=== PATIENT | female | born 1960 | race African-American/Black ===

== ENCOUNTER 2017-09-06 20:49 | Emergency (ER) | payer MEDICARE, MEDICAID ==
[~2017-09-06] VITALS: Ht 167.6 cm; Wt 70.0 kg
[~2017-09-06 20:49] MED LIST: AMLO1TAB64 PO; CARI350T PO; CLON0.3T PO; HYDR-4135 PO; HYDR-523 PO; LABE100T PO; ROSU10TA PO
[2017-09-06 21:41] LABS: BASOPHILS % 0.4 % (0.0-2.0); EOSINOPHILS % 1.5 % (0.0-5.0); HEMATOCRIT. 29.2 % (36.0-48.0); HEMOGLOBIN. 9.8 g/dL (12.0-16.0); LYMPHOCYTES % 15.2 % (20.0-50.0); MEAN CORPUSCULAR HEMOGLOBIN 23.4 pg (28.0-32.0); MEAN CORPUSCULAR VOLUME 69.9 fL (81.0-99.0); MEAN PLATELET VOLUME 10.2 fl (7.4-10.4); MONOCYTES % 8.6 % (2.0-8.0); NEUTROPHILS % 74.3 % (40.0-76.0); PLATELET 201 x1000/uL (130-400); RED BLOOD CELL COUNT 4.18 mill/uL (4.2-5.4); RED CELL DISTRIBUTION WIDTH 16.7 % (11.6-14.6)
[2017-09-06 21:46] LABS: PARTIAL THROMBOPLASTIN TIME 23.7 sec (23.4-31.0); PROTHROMBIN TIME 10.6 sec (9.4-11.6)
[2017-09-06] MEDS ORDERED: ALBUTEROL (0.083%) 2.5MG/3ML NEB HHN STA (21:50)
[2017-09-06] MEDS ORDERED: PREDNISONE 20MG TABLET PO STA (21:50)
[2017-09-06] MEDS ORDERED: IPRATROPIUM BROMIDE (0.02%) 0.5MG/2.5ML NEB HHN STA (21:50)
[2017-09-06 21:55] LABS: TROPONIN I 0.07 ng/mL (0.00-0.04)
[2017-09-06 22:05] LABS: PLATELET ESTIMATE NORMAL
[2017-09-06] MEDS ORDERED: IPRATROPIUM/ALBUTEROL 0.5-3(2.5)MG/3ML NEB ONE (22:07)
[2017-09-06] MEDS ORDERED: ALBUTEROL (0.5%) 2.5MG/0.5ML NEB HHN ONE (22:08)
[2017-09-07] MEDS ORDERED: TRAMADOL 50MG TABLET PO ONE
[2017-09-07] MEDS ORDERED: DIPHENHYDRAMINE 25MG CAPSULE PO ONE
[2017-09-07 01:51] VITALS: BP 126/59
== END 2017-09-07 01:56 | disposition home or self-care (01) ==
LOC: ER 20:57
DX: J20.9 Acute bronchitis, unspecified (principal); I10 Essential (primary) hypertension; N28.9 Disorder of kidney and ureter, unspecified; D64.9 Anemia, unspecified; E11.9 Type 2 diabetes mellitus without complications; Z98.890 Other specified postprocedural states; Z88.6 Allergy status to analgesic agent; Z91.048 Other nonmedicinal substance allergy status
CPT/HCPCS: 36415; 71010; 80048; 83880; 84484; 85025; 85610; 85730; 93005; 94640; 99285; J7512; J7611; J7620; Q0163

== ENCOUNTER 2018-10-07 18:33 | Inpatient (IN) | payer MEDICARE, MEDICAID ==
[~2018-10-07] VITALS: Ht 165.1 cm; Wt 63.5 kg
[~2018-10-07 18:33] MED LIST changes: -CARI350T PO; -LABE100T PO; +LABE100T5 PO; +S350 PO
[2018-10-07] MEDS ORDERED: SODIUM CHLORIDE 0.9% 1000ML BAG (SEPSIS BOLUS) IV ONE ×2 (20:15)
[2018-10-07] MEDS ORDERED: VANCOMYCIN 1 G PREMIX 200 ML IV SCH (20:15)
[2018-10-07] MEDS ORDERED: PIPERACILLIN/TAZOBACTAM 3.375GM/50ML PREMIX IV SCH (20:15)
[2018-10-07] MEDS ORDERED: MORPHINE SULFATE 4 MG/ML CPJ (NOT FOR IM USE) IV ONE (20:30)
[2018-10-07] MEDS ORDERED: DIPHENHYDRAMINE 50MG/ML VIAL IV ONE (20:30)
[2018-10-07 22:08] LABS: BASOPHILS % 0.6 % (0.0-2.0); EOSINOPHILS % 1.4 % (0.0-5.0); HEMATOCRIT. 28.9 % (36.0-48.0); HEMOGLOBIN. 9.5 g/dL (12.0-16.0); LYMPHOCYTES % 18.7 % (20.0-50.0); MEAN CORPUSCULAR HEMOGLOBIN 22.8 pg (28.0-32.0); MEAN CORPUSCULAR VOLUME 69.5 fL (81.0-99.0); MEAN PLATELET VOLUME 10.9 fl (7.4-10.4); MONOCYTES % 7.6 % (2.0-8.0); NEUTROPHILS % 71.7 % (40.0-76.0); PLATELET 197 x1000/uL (130-400); RED BLOOD CELL COUNT 4.16 mill/uL (4.2-5.4); RED CELL DISTRIBUTION WIDTH 16.9 % (11.6-14.6)
[2018-10-07 22:10] LABS: CLARITY URINE CLEAR (CLEAR); COLOR URINE YELLOW (YELLOW); KETONES URINE NEGATIVE (NEGATIVE); LEUKOCYTE ESTERASE URINE 1+ (NEGATIVE); NITRITE URINE NEGATIVE (NEGATIVE); OCCULT BLOOD URINE NEGATIVE (NEGATIVE); PH URINE 6.5 (4.5-8.0); PROTEIN URINE 1+ (NEGATIVE); SPECIFIC GRAVITY URINE 1.013 (1.005-1.030); UROBILINOGEN URINE 0.2 E.U./dL (0.2-1.0)
[2018-10-07 22:11] LABS: INR 1.1; PROTHROMBIN TIME 10.7 sec (9.1-11.1)
[2018-10-07 22:12] LABS: CHLORIDE 108 mEq/L (98-107)
[2018-10-07 22:44] LABS: PLATELET ESTIMATE NORMAL
[2018-10-07] MEDS ORDERED: METOCLOPRAMIDE HCL 10MG/2ML VIAL IV ONE (23:45)
[2018-10-08] MEDS: CLONIDINE 0.3MG TABLET PO SCH ×3 (06:57→21:34)
[2018-10-08] MEDS ORDERED: ACETAMINOPHEN 325MG TABLET PO PRN (07:00)
[2018-10-08] MEDS ORDERED: CLONIDINE 0.1MG TABLET PO PRN (07:00)
[2018-10-08] MEDS ORDERED: ONDANSETRON HCL 4MG/2ML INJ IV PRN (07:00)
[2018-10-08] MEDS ORDERED: HYDROCODONE/ACETAMINOPHEN 5/325MG TABLET PO PRN (07:00)
[2018-10-08] MEDS ORDERED: DOCUSATE SODIUM 100MG CAPSULE PO PRN (07:00)
[2018-10-08] MEDS: DIPHENHYDRAMINE 50MG/ML VIAL IV PRN ×2 (09:35→21:41)
[2018-10-08] MEDS ORDERED: OXYC-611 MT (10:57)
[2018-10-08] MEDS: ENOXAPARIN 40MG/0.4ML SYR SUBCUT SCH (11:50)
[2018-10-08] MEDS: CEFTRIAXONE 1 G PREMIX 50 ML IV SCH (11:50)
[2018-10-08 12:00] VITALS: BP 150/88
[2018-10-08] MEDS ORDERED: INFLUENZA VIRUS VACCINE(AFLURIA) 0.5ML SYR IM ONE (12:00)
[2018-10-08 12:12] VITALS: BP 150/88
[2018-10-08] MEDS ORDERED: FURO-152 MT (12:44)
[2018-10-08] MEDS ORDERED: OXYCODONE HCL 20MG TABLET SR 12HR PO PRN (13:00)
[2018-10-08] MEDS ORDERED: OXYCODONE HCL 10MG TABLET SR 12HR PO PRN (13:30)
[2018-10-08] MEDS: AMLODIPINE 10MG TABLET PO SCH (15:16)
[2018-10-08] MEDS: VANCOMYCIN 1 G PREMIX 200 ML IV SCH (15:16)
[2018-10-08 16:00] VITALS: BP 164/85
[2018-10-08 17:00] VITALS: BP 124/73
[2018-10-08] MEDS: MORPHINE SULFATE 4 MG/ML CPJ (NOT FOR IM USE) IV PRN ×2 (18:45→22:34)
[2018-10-08 20:00] VITALS: BP 99/60
[2018-10-08] MEDS: HYDRALAZINE HCL 50MG TABLET PO SCH (21:33)
[2018-10-09] VITALS: BP 120/55
[2018-10-09 04:00] VITALS: BP 164/82
[2018-10-09] MEDS: MORPHINE SULFATE 4 MG/ML CPJ (NOT FOR IM USE) IV PRN ×4 (04:04→19:51)
[2018-10-09] MEDS: DIPHENHYDRAMINE 50MG/ML VIAL IV PRN ×4 (04:04→19:40)
[2018-10-09] MEDS: HYDRALAZINE HCL 50MG TABLET PO SCH ×3 (05:21→21:07)
[2018-10-09] MEDS: CLONIDINE 0.3MG TABLET PO SCH ×3 (05:21→21:07)
[2018-10-09 07:38] LABS: BASOPHILS % 0.7 % (0.0-2.0); EOSINOPHILS % 3.9 % (0.0-5.0); HEMATOCRIT. 26.5 % (36.0-48.0); HEMOGLOBIN. 8.6 g/dL (12.0-16.0); LYMPHOCYTES % 34.5 % (20.0-50.0); MEAN CORPUSCULAR HEMOGLOBIN 22.9 pg (28.0-32.0); MEAN CORPUSCULAR VOLUME 70.8 fL (81.0-99.0); MONOCYTES % 9.4 % (2.0-8.0); NEUTROPHILS % 51.5 % (40.0-76.0); RED BLOOD CELL COUNT 3.75 mill/uL (4.2-5.4); RED CELL DISTRIBUTION WIDTH 16.9 % (11.6-14.6)
[2018-10-09 08:00] VITALS: BP 147/79
[2018-10-09 08:28] LABS: CHLORIDE 105 mEq/L (98-107)
[2018-10-09] MEDS: VANCOMYCIN 1 G PREMIX 200 ML IV SCH (09:10)
[2018-10-09] MEDS: ENOXAPARIN 40MG/0.4ML SYR SUBCUT SCH (09:11)
[2018-10-09] MEDS: AMLODIPINE 10MG TABLET PO SCH (09:11)
[2018-10-09 12:00] VITALS: BP 163/67
[2018-10-09] MEDS: CEFTRIAXONE 1 G PREMIX 50 ML IV SCH (12:00)
[2018-10-09 16:00] VITALS: BP 129/75
[2018-10-09] MEDS: VANCOMYCIN 750 MG PREMIX 150 ML IV SCH (19:51)
[2018-10-09 20:00] VITALS: BP 157/84
[2018-10-10] VITALS (7 sets, daily range): BP systolic 125–158; BP diastolic 74–83
[2018-10-10] MEDS: CLONIDINE 0.3MG TABLET PO SCH ×3 (06:00→20:41)
[2018-10-10] MEDS: HYDRALAZINE HCL 50MG TABLET PO SCH ×3 (06:24→20:41)
[2018-10-10] MEDS: DIPHENHYDRAMINE 50MG/ML VIAL IV PRN ×4 (06:25→20:41)
[2018-10-10] MEDS: MORPHINE SULFATE 4 MG/ML CPJ (NOT FOR IM USE) IV PRN ×4 (06:32→20:41)
[2018-10-10] MEDS: VANCOMYCIN 750 MG PREMIX 150 ML IV SCH ×2 (08:36→20:40)
[2018-10-10] MEDS: ENOXAPARIN 40MG/0.4ML SYR SUBCUT SCH (08:37)
[2018-10-10] MEDS: AMLODIPINE 10MG TABLET PO SCH (08:37)
[2018-10-10] MEDS ORDERED: CEFTRIAXONE 1 G PREMIX 50 ML IV SCH (13:00)
[2018-10-11 00:05] VITALS: BP 129/68
[2018-10-11] MEDS: DIPHENHYDRAMINE 50MG/ML VIAL IV PRN ×2 (02:14→05:58)
[2018-10-11] MEDS: MORPHINE SULFATE 4 MG/ML CPJ (NOT FOR IM USE) IV PRN ×3 (02:14→10:46)
[2018-10-11 04:00] VITALS: BP 158/74
[2018-10-11] MEDS: HYDRALAZINE HCL 50MG TABLET PO SCH (05:58)
[2018-10-11] MEDS: CLONIDINE 0.3MG TABLET PO SCH (05:58)
[2018-10-11 08:00] VITALS: BP 161/78
[2018-10-11] MEDS: AMLODIPINE 10MG TABLET PO SCH (08:23)
[2018-10-11] MEDS: VANCOMYCIN 750 MG PREMIX 150 ML IV SCH (08:24)
[2018-10-11] MEDS: ENOXAPARIN 40MG/0.4ML SYR SUBCUT SCH (08:24)
[2018-10-11 10:53] VITALS: BP 141/72
== END 2018-10-11 11:50 | disposition home health service (06) | DRG 683 ==
LOC: ER 18:33 → EDBEDREQ 23:56 → EDBEDREQTM 23:56 → EDBEDREQ 23:57 → 7WST 10-08 00:26 → EDBEDREQ 10-08 00:40 → EDBEDREQTM 10-08 00:40 → EDBEDREQSVC 10-08 00:40 → EDBEDREQDT 10-08 00:40 → ENRESERV 10-08 08:09
PROVIDERS: ADMIT Internal Medicine Nephrology; ATTEND Internal Medicine Nephrology
DX: N17.9 Acute kidney failure, unspecified (principal); N39.0 Urinary tract infection, site not specified; S41.101A Unspecified open wound of right upper arm, initial encounter; I10 Essential (primary) hypertension; D64.9 Anemia, unspecified; Z88.5 Allergy status to narcotic agent; Z88.1 Allergy status to other antibiotic agents; Z91.041 Radiographic dye allergy status; Y93.89 Activity, other specified; Y92.89 Other specified places as the place of occurrence of the external cause; Y99.8 Other external cause status; L90.5 Scar conditions and fibrosis of skin; S41.101S Unspecified open wound of right upper arm, sequela; X08.8XXS Exposure to other specified smoke, fire and flames, sequela
CPT/HCPCS: 36415; 71045; 80048; 80202; 83605; 83735; 84145; 84484; 90686; 93005; 96365; 96368; 96375; 97162; 99285; C1893; J0696; J1200; J1650; J2270; J2543; J2765; J3370; J7030; J7050

== ENCOUNTER 2022-08-09 12:15 | Inpatient (IN) | payer MEDICARE, MEDICAID ==
[~2022-08-09] VITALS: Ht 170.2 cm; Wt 79.8 kg
[~2022-08-09 12:15] MED LIST changes: +FURO-152 MT; -HYDR-523 PO; -LABE100T5 PO; +OXYC-611 MT; -ROSU10TA PO; -S350 PO
[2022-08-09] MEDS ORDERED: ACETAMINOPHEN 325MG TABLET PO ONE (12:45)
[2022-08-09 15:11] LABS: BASOPHILS % 0.2 % (0.0-2.0); EOSINOPHILS % 1.3 % (0.0-5.0); HEMATOCRIT. 33.1 % (36.0-48.0); HEMOGLOBIN. 10.8 g/dL (12.0-16.0); LYMPHOCYTES % 15.9 % (20.0-50.0); MEAN CORPUSCULAR HEMOGLOBIN 22.9 pg (28.0-32.0); MEAN CORPUSCULAR VOLUME 69.9 fL (81.0-99.0); MEAN PLATELET VOLUME 10.2 fl (7.4-10.4); MONOCYTES % 6.5 % (2.0-8.0); NEUTROPHILS % 76.1 % (40.0-76.0); PLATELET 270 x1000/uL (130-400); RED BLOOD CELL COUNT 4.74 mill/uL (4.2-5.4); RED CELL DISTRIBUTION WIDTH 17.3 % (11.6-14.6)
[2022-08-09 15:23] LABS: CHLORIDE 101 mEq/L (98-107)
[2022-08-09 17:01] LABS: PLATELET ESTIMATE NORMAL
[2022-08-09] MEDS ORDERED: MORPHINE SULFATE 4 MG/ML CPJ (NOT FOR IM USE) IV ONE (19:00)
[2022-08-09] MEDS ORDERED: MORPHINE SULFATE 4 MG/ML CPJ (NOT FOR IM USE) IV NR (19:00)
[2022-08-09] MEDS ORDERED: DIPHENHYDRAMINE 50MG/ML VIAL IV NR (19:00)
[2022-08-09] MEDS ORDERED: DIPHENHYDRAMINE 50MG/ML VIAL IV ONE (19:00)
[2022-08-09] MEDS ORDERED: NITROGLYCERIN 0.4MG TABLET SL SL PRN (20:45)
[2022-08-09] MEDS ORDERED: ACETAMINOPHEN 325MG TABLET PO PRN ×4 (20:45→21:15)
[2022-08-09] MEDS ORDERED: GUAIFENESIN 200MG/10ML SUGAR FREE UDC PO PRN ×2 (20:45→21:15)
[2022-08-09] MEDS ORDERED: IPRATROPIUM/ALBUTEROL 0.5-3(2.5)MG/3ML NEB NEB PRN (20:45)
[2022-08-09] MEDS ORDERED: TRAMADOL 50MG TABLET PO PRN (20:45)
[2022-08-09] MEDS ORDERED: DOCUSATE SODIUM 100MG CAPSULE PO PRN ×2 (20:45→21:15)
[2022-08-09] MEDS ORDERED: CLONIDINE 0.1MG TABLET PO PRN ×2 (20:45→21:15)
[2022-08-09] MEDS ORDERED: NA PHOS,M-B/NA PHOS,DI-BA ENEMA 118ML PR PRN (20:45)
[2022-08-09] MEDS ORDERED: MAGNESIUM/ALUMINUM HYDROXIDE/SIMETHICONE 30ML UDC PO PRN ×2 (20:45→21:15)
[2022-08-09] MEDS ORDERED: ZOLPIDEM TARTRATE 5MG TABLET PO PRN (20:45)
[2022-08-09] MEDS ORDERED: ONDANSETRON HCL 4MG/2ML INJ IV PRN ×2 (20:45→21:15)
[2022-08-09] MEDS ORDERED: KETOROLAC 15MG/ML VIAL IV PRN (20:45)
[2022-08-09] MEDS: AMLODIPINE 10MG TABLET PO SCH (21:15)
[2022-08-09] MEDS ORDERED: ENOXAPARIN 40MG/0.4ML SYR SUBCUT SCH (21:15)
[2022-08-09] MEDS ORDERED: IPRATROPIUM/ALBUTEROL 0.5-3(2.5)MG/3ML NEB HHN PRN (21:15)
[2022-08-09] MEDS ORDERED: HYDROMORPHONE HCL/PF 2MG/ML CPJ IV PRN (21:15)
[2022-08-09] MEDS ORDERED: ACETAMINOPHEN 650MG SUPP PR PRN ×2 (21:15)
[2022-08-09] MEDS ORDERED: NALOXONE HCL 0.4MG/ML VIAL IV PRN (22:30)
[2022-08-09] MEDS: METOPROLOL TARTRATE 25MG TABLET PO SCH (23:10)
[2022-08-09] MEDS: FAMOTIDINE 20MG TABLET PO SCH (23:10)
[2022-08-09] MEDS: ENOXAPARIN 40MG/0.4ML SYR SUBCUT SCH (23:12)
[2022-08-10 00:25] LABS: ETHANOL BLOOD < 10 mg/dL; HDL CHOLESTEROL 42 mg/dL (40-59); LDL CHOLESTEROL 134 mg/dL (5-100); T4 FREE 0.96 ng/dL (0.76-1.46); TOTAL IRON BINDING CAPACITY 242 ug/dL (250-450)
[2022-08-10 00:27] LABS: CREATINE KINASE 44 IU/L (26-192); CREATINE KINASE MB FRACTION < 1.0 ng/mL (0.5-3.6)
[2022-08-10 01:05] LABS: VITAMIN B12 SERUM 634 pg/mL (211-911)
[2022-08-10 02:10] LABS: FOLIC ACID (FOLATE) SERUM > 20.00 ng/mL (>5.38)
[2022-08-10 02:16] VITALS: BP 134/79
[2022-08-10] MEDS: HYDROCODONE/ACETAMINOPHEN 5/325MG TABLET PO PRN (02:35)
[2022-08-10 04:00] VITALS: BP 127/72
[2022-08-10 08:00] VITALS: BP 127/73
[2022-08-10] MEDS: METOPROLOL TARTRATE 25MG TABLET PO SCH ×2 (08:08→21:15)
[2022-08-10] MEDS: AMLODIPINE 10MG TABLET PO SCH (08:08)
[2022-08-10] MEDS: ASPIRIN 325MG EC TABLET PO SCH (08:08)
[2022-08-10] MEDS: FAMOTIDINE 20MG TABLET PO SCH ×2 (08:08→21:15)
[2022-08-10] MEDS: DIPHENHYDRAMINE 50MG/ML VIAL IV PRN ×3 (08:10→21:21)
[2022-08-10] MEDS: MORPHINE SULFATE 2 MG/ML CPJ (NOT FOR IM USE) IV PRN ×4 (08:10→21:16)
[2022-08-10] MEDS ORDERED: ASPIRIN 81MG EC TABLET PO SCH (09:00)
[2022-08-10 11:03] LABS: BASOPHILS % 0.3 % (0.0-2.0); EOSINOPHILS % 1.9 % (0.0-5.0); HEMATOCRIT. 30.4 % (36.0-48.0); HEMOGLOBIN. 10.3 g/dL (12.0-16.0); LYMPHOCYTES % 21.5 % (20.0-50.0); MEAN CORPUSCULAR VOLUME 67.6 fL (81.0-99.0); MEAN PLATELET VOLUME 10.2 fl (7.4-10.4); MONOCYTES % 6.7 % (2.0-8.0); NEUTROPHILS % 69.6 % (40.0-76.0); PLATELET 284 x1000/uL (130-400)
[2022-08-10 11:55] LABS: CHLORIDE 102 mEq/L (98-107)
[2022-08-10 12:00] VITALS: BP 118/68
[2022-08-10] MEDS ORDERED: POTASSIUM CHLORIDE 20MEQ TABLET SR PO NR (12:30)
[2022-08-10 12:53] LABS: CREATINE KINASE 53 IU/L (26-192); CREATINE KINASE MB FRACTION < 1.0 ng/mL (0.5-3.6); HDL CHOLESTEROL 37 mg/dL (40-59); LDL CHOLESTEROL 130 mg/dL (5-100); PHOSPHORUS 3.2 mg/dL (2.5-4.9)
[2022-08-10 16:00] VITALS: BP 121/78
[2022-08-10 20:00] VITALS: BP_SYST 127; BP_SYST 129; BP_DIAS 80; BP_DIAS 82
[2022-08-10] MEDS: ENOXAPARIN 40MG/0.4ML SYR SUBCUT SCH (21:14)
[2022-08-10 22:18] LABS: *AMPHETAMINES SCREEN URINE NEGATIVE (NEGATIVE); *BARBITURATES SCREEN URINE NEGATIVE (NEGATIVE); *BENZODIAZEPINES SCREEN URINE NEGATIVE (NEGATIVE); *COCAINE SCREEN URINE NEGATIVE (NEGATIVE); CANNABINOID URINE SCREEN PRESUMTIVE POSITIVE (NEGATIVE); METHADONE URINE SCREEN NEGATIVE (NEGATIVE); OPIATES URINE SCREEN PRESUMTIVE POSITIVE (NEGATIVE); PHENCYCLIDINE URINE SCREEN NEGATIVE (NEGATIVE)
[2022-08-11] VITALS: BP 129/82
[2022-08-11 04:00] VITALS: BP 138/78
[2022-08-11] MEDS: DIPHENHYDRAMINE 50MG/ML VIAL IV PRN ×3 (04:34→20:09)
[2022-08-11] MEDS: MORPHINE SULFATE 2 MG/ML CPJ (NOT FOR IM USE) IV PRN ×4 (04:39→20:10)
[2022-08-11] MEDS: SODIUM CHLORIDE 0.45% 1,000 ML IV SCH ×2 (07:47→23:11)
[2022-08-11 08:00] VITALS: BP 142/83
[2022-08-11] MEDS: AMLODIPINE 10MG TABLET PO SCH (08:14)
[2022-08-11] MEDS: FAMOTIDINE 20MG TABLET PO SCH ×2 (08:14→20:08)
[2022-08-11] MEDS: METOPROLOL TARTRATE 25MG TABLET PO SCH ×2 (08:14→20:09)
[2022-08-11] MEDS: ASPIRIN 325MG EC TABLET PO SCH (08:14)
[2022-08-11 08:27] LABS: BASOPHILS % 0.6 % (0.0-2.0); HEMATOCRIT. 28.4 % (36.0-48.0); HEMOGLOBIN. 9.4 g/dL (12.0-16.0); LYMPHOCYTES % 16.9 % (20.0-50.0); MEAN CORPUSCULAR HEMOGLOBIN 22.8 pg (28.0-32.0); MEAN CORPUSCULAR VOLUME 69.3 fL (81.0-99.0); MEAN PLATELET VOLUME 10.8 fl (7.4-10.4); MONOCYTES % 8.2 % (2.0-8.0); NEUTROPHILS % 72.3 % (40.0-76.0); PLATELET 223 x1000/uL (130-400); RED CELL DISTRIBUTION WIDTH 17.2 % (11.6-14.6)
[2022-08-11 12:00] VITALS: BP 154/76
[2022-08-11 16:00] VITALS: BP 137/71
[2022-08-11 20:00] VITALS: BP 136/76
[2022-08-11] MEDS: ENOXAPARIN 40MG/0.4ML SYR SUBCUT SCH (20:08)
[2022-08-11] MEDS: HYDROCODONE/ACETAMINOPHEN 5/325MG TABLET PO PRN (23:17)
[2022-08-12] VITALS: BP 126/72
[2022-08-12] MEDS: MORPHINE SULFATE 2 MG/ML CPJ (NOT FOR IM USE) IV PRN ×4 (00:31→14:47)
[2022-08-12] MEDS: DIPHENHYDRAMINE 50MG/ML VIAL IV PRN ×3 (02:26→16:32)
[2022-08-12 04:00] VITALS: BP 153/83
[2022-08-12 07:29] LABS: BASOPHILS % 0.3 % (0.0-2.0); EOSINOPHILS % 2.5 % (0.0-5.0); HEMATOCRIT. 28.8 % (36.0-48.0); HEMOGLOBIN. 9.6 g/dL (12.0-16.0); LYMPHOCYTES % 25.1 % (20.0-50.0); MEAN CORPUSCULAR HEMOGLOBIN 22.8 pg (28.0-32.0); MEAN CORPUSCULAR VOLUME 68.6 fL (81.0-99.0); MEAN PLATELET VOLUME 10.6 fl (7.4-10.4); MONOCYTES % 8.9 % (2.0-8.0); NEUTROPHILS % 63.2 % (40.0-76.0); PLATELET 264 x1000/uL (130-400); RED CELL DISTRIBUTION WIDTH 17.2 % (11.6-14.6)
[2022-08-12 08:00] VITALS: BP 120/72
[2022-08-12 09:32] LABS: CHLORIDE 100 mEq/L (98-107)
[2022-08-12] MEDS: ASPIRIN 325MG EC TABLET PO SCH (09:54)
[2022-08-12] MEDS: AMLODIPINE 10MG TABLET PO SCH (09:54)
[2022-08-12] MEDS: ENOXAPARIN 40MG/0.4ML SYR SUBCUT SCH (09:54)
[2022-08-12] MEDS: METOPROLOL TARTRATE 25MG TABLET PO SCH (09:55)
[2022-08-12] MEDS: FAMOTIDINE 20MG TABLET PO SCH (09:55)
[2022-08-12 09:58] LABS: PHOSPHORUS 3.2 mg/dL (2.5-4.9)
[2022-08-12] MEDS ORDERED: ASPI-867 PO (10:48)
[2022-08-12 12:00] VITALS: BP 134/77
[2022-08-12] MEDS ORDERED: POTASSIUM CHLORIDE 20MEQ TABLET SR PO SCH (12:00)
[2022-08-12 12:04] VITALS: BP 120/72
[2022-08-12 16:00] VITALS: BP 121/65
[2022-08-12] MEDS ORDERED: ATORVASTATIN CALCIUM 40MG TABLET PO SCH (21:00)
== END 2022-08-12 17:15 | disposition home health service (06) | DRG 947 ==
LOC: ER 12:15 → SUPCPDRO 19:37 → MICUSO 23:22 → 8WST 08-10 02:15
PROVIDERS: ADMIT Family Medicine Adult Medicine; ATTEND Family Medicine Adult Medicine
DX: G89.18 Other acute postprocedural pain (principal); I21.A1 Myocardial infarction type 2; J96.01 Acute respiratory failure with hypoxia; I13.0 Hypertensive heart and chronic kidney disease with heart failure and stage 1 through stage 4 chronic kidney disease, or unspecified chronic kidney disease; N17.9 Acute kidney failure, unspecified; J44.1 Chronic obstructive pulmonary disease with (acute) exacerbation; N39.0 Urinary tract infection, site not specified; D72.829 Elevated white blood cell count, unspecified; I50.9 Heart failure, unspecified; N18.9 Chronic kidney disease, unspecified; E78.5 Hyperlipidemia, unspecified; R01.1 Cardiac murmur, unspecified; G40.909 Epilepsy, unspecified, not intractable, without status epilepticus; D63.1 Anemia in chronic kidney disease; E66.9 Obesity, unspecified; E11.22 Type 2 diabetes mellitus with diabetic chronic kidney disease; M79.89 Other specified soft tissue disorders; F17.210 Nicotine dependence, cigarettes, uncomplicated; E11.65 Type 2 diabetes mellitus with hyperglycemia; Z68.27 Body mass index [BMI] 27.0-27.9, adult; Z79.899 Other long term (current) drug therapy; Z88.8 Allergy status to other drugs, medicaments and biological substances; Z90.13 Acquired absence of bilateral breasts and nipples; Z99.81 Dependence on supplemental oxygen
CPT/HCPCS: 36415; 71045; 74176; 76770; 80048; 80053; 80061; 80305; 80320; 82550; 82553; 82607; 82746; 83540; 83550; 83605; 83735; 84100; 84439; 84443; 84484; 85025; 93306; 93971; 97162; 97166; 99285; J1200; J1650; J2270; G0480

== ENCOUNTER 2022-10-15 18:42 | Inpatient (IN) | payer MEDICARE, MEDICAID ==
[~2022-10-15] VITALS: Ht 167.6 cm; Wt 79.4 kg
[~2022-10-15 18:42] MED LIST changes: +ASPI-867 PO
[2022-10-15] MEDS ORDERED: PIPERACILLIN/TAZ 3.375G PREMIX 50 ML IV ONE (20:45)
[2022-10-15] MEDS ORDERED: VANCOMYCIN 1G PREMIX 200 ML IV ONE (20:45)
[2022-10-15] MEDS ORDERED: SODIUM CHLORIDE 0.9% 1000ML BAG (SEPSIS BOLUS) IV ONE (20:45)
[2022-10-15] MEDS ORDERED: OSELTAMIVIR 75MG CAPSULE PO ONE (20:45)
[2022-10-15] MEDS ORDERED: ACETAMINOPHEN 325MG TABLET PO ONE (20:45)
[2022-10-15 21:03] LABS: HEMATOCRIT. 27.7 % (36.0-48.0); HEMOGLOBIN. 9.2 g/dL (12.0-16.0); MEAN CORPUSCULAR HEMOGLOBIN 26.2 pg (28.0-32.0); MEAN CORPUSCULAR VOLUME 78.6 fL (81.0-99.0); PLATELET 355 x1000/uL (130-400); RED BLOOD CELL COUNT 3.52 mill/uL (4.2-5.4)
[2022-10-15 21:11] LABS: CHLORIDE 105 mEq/L (98-107)
[2022-10-15 21:19] LABS: PLATELET ESTIMATE NORMAL
[2022-10-15] MEDS ORDERED: ONDANSETRON HCL 4MG/2ML INJ IV STA (21:58)
[2022-10-15] MEDS ORDERED: MORPHINE SULFATE 4 MG/ML CPJ (NOT FOR IM USE) IV STA (21:58)
[2022-10-15] MEDS ORDERED: DIPHENHYDRAMINE 50MG/ML VIAL IV ONE (22:00)
[2022-10-16] MEDS ORDERED: MORPHINE SULFATE 4 MG/ML CPJ (NOT FOR IM USE) IV ONE (06:15)
[2022-10-16] MEDS ORDERED: ONDANSETRON HCL 4MG/2ML INJ IV ONE (06:15)
[2022-10-16] MEDS ORDERED: DIPHENHYDRAMINE 50MG CAPSULE PO ONE (06:45)
[2022-10-16] MEDS ORDERED: ACETAMINOPHEN 325MG TABLET PO PRN (07:15)
[2022-10-16] MEDS ORDERED: NALOXONE HCL 0.4MG/ML VIAL IV PRN (07:45)
[2022-10-16] MEDS ORDERED: PIPERACILLIN/TAZ 3.375G PREMIX 50 ML IV SCH (07:45)
[2022-10-16 08:10] LABS: CLARITY URINE CLEAR (CLEAR); COLOR URINE YELLOW (YELLOW); KETONES URINE NEGATIVE (NEGATIVE); LEUKOCYTE ESTERASE URINE NEGATIVE (NEGATIVE); NITRITE URINE NEGATIVE (NEGATIVE); OCCULT BLOOD URINE NEGATIVE (NEGATIVE); PROTEIN URINE TRACE (NEGATIVE); SPECIFIC GRAVITY URINE 1.015 (1.005-1.030)
[2022-10-16] MEDS: SODIUM CHLORIDE 0.9% 1,000 ML IV SCH ×2 (08:38→23:55)
[2022-10-16] MEDS ORDERED: LIDOCAINE HCL 1% 30ML VIAL (10MG/ML) ONE (10:03)
[2022-10-16 12:00] VITALS: BP 118/69
[2022-10-16] MEDS: MORPHINE SULFATE 2 MG/ML CPJ (NOT FOR IM USE) IV PRN ×3 (13:22→22:06)
[2022-10-16] MEDS: DIPHENHYDRAMINE 50MG/ML VIAL IV PRN ×3 (13:22→22:05)
[2022-10-16] MEDS ORDERED: POTA-205 MT (13:47)
[2022-10-16] MEDS ORDERED: ASPI-1497 PO (13:48)
[2022-10-16 14:06] VITALS: BP 115/65
[2022-10-16] MEDS: PIPERACILLIN/TAZOBACTAM 3.375 G in DEXTROSE 5% WATER 50 ML IV SCH ×2 (15:51→21:51)
[2022-10-16 16:00] VITALS: BP 120/65
[2022-10-16 18:00] VITALS: BP 118/70
[2022-10-16 18:16] LABS: HEMATOCRIT. 24.5 % (36.0-48.0); HEMOGLOBIN. 8.1 g/dL (12.0-16.0); MEAN CORPUSCULAR HEMOGLOBIN 26.4 pg (28.0-32.0); MEAN CORPUSCULAR VOLUME 79.9 fL (81.0-99.0); MEAN PLATELET VOLUME 9.2 fl (7.4-10.4); PLATELET 294 x1000/uL (130-400); RED BLOOD CELL COUNT 3.06 mill/uL (4.2-5.4); RED CELL DISTRIBUTION WIDTH 21.5 % (11.6-14.6)
[2022-10-16 19:04] LABS: PLATELET ESTIMATE NORMAL
[2022-10-16] MEDS: VANCOMYCIN 750MG PREMIX 150 ML IV SCH (19:06)
[2022-10-16 20:00] VITALS: BP 108/65
[2022-10-16 20:01] LABS: CHLORIDE 101 mEq/L (98-107)
[2022-10-16 22:00] VITALS: BP 109/58
[2022-10-16 23:36] LABS: HEMATOCRIT. 24.3 % (36.0-48.0); HEMOGLOBIN. 8.3 g/dL (12.0-16.0); MEAN CORPUSCULAR HEMOGLOBIN 26.8 pg (28.0-32.0); PLATELET 312 x1000/uL (130-400); RED BLOOD CELL COUNT 3.12 mill/uL (4.2-5.4); RED CELL DISTRIBUTION WIDTH 21.6 % (11.6-14.6)
[2022-10-16 23:39] LABS: INR 1.1; PARTIAL THROMBOPLASTIN TIME 26.8 sec (23.4-31.0); PROTHROMBIN TIME 11.4 sec (9.6-11.0)
[2022-10-17] VITALS (12 sets, daily range): BP systolic 88–148; BP diastolic 49–77
[2022-10-17] MEDS: DIPHENHYDRAMINE 50MG/ML VIAL IV PRN ×4 (04:05→22:09)
[2022-10-17] MEDS: MORPHINE SULFATE 2 MG/ML CPJ (NOT FOR IM USE) IV PRN ×5 (04:07→22:10)
[2022-10-17] MEDS ORDERED: PIPERACILLIN/TAZOBACTAM 3.375 G in DEXTROSE 5% WATER 50 ML IV SCH (06:00)
[2022-10-17] MEDS: PIPERACILLIN/TAZOBACTAM 3.375 G in DEXTROSE 5% WATER 50 ML IV SCH ×3 (06:01→22:10)
[2022-10-17 07:55] LABS: HEMATOCRIT. 24.7 % (36.0-48.0); HEMOGLOBIN. 8.3 g/dL (12.0-16.0); MEAN CORPUSCULAR HEMOGLOBIN 26.3 pg (28.0-32.0); MEAN CORPUSCULAR VOLUME 78.4 fL (81.0-99.0); PLATELET 303 x1000/uL (130-400); RED BLOOD CELL COUNT 3.15 mill/uL (4.2-5.4); RED CELL DISTRIBUTION WIDTH 21.9 % (11.6-14.6)
[2022-10-17 08:23] LABS: PHOSPHORUS 3.3 mg/dL (2.5-4.9)
[2022-10-17 09:25] LABS: PLATELET ESTIMATE NORMAL
[2022-10-17 15:18] LABS: PLATELET ESTIMATE NORMAL
[2022-10-17] MEDS: SODIUM CHLORIDE 0.9% 1,000 ML IV SCH (16:01)
[2022-10-17] MEDS: VANCOMYCIN 750MG PREMIX 150 ML IV SCH (18:27)
[2022-10-17] MEDS ORDERED: PREDNISONE 20MG TABLET PO ONE (22:00)
[2022-10-18] VITALS (11 sets, daily range): BP systolic 144–181; BP diastolic 72–102
[2022-10-18 00:29] LABS: HEMATOCRIT. 24.4 % (36.0-48.0); HEMOGLOBIN. 8.3 g/dL (12.0-16.0); MEAN CORPUSCULAR HEMOGLOBIN 26.6 pg (28.0-32.0); MEAN CORPUSCULAR VOLUME 78.1 fL (81.0-99.0); MEAN PLATELET VOLUME 8.9 fl (7.4-10.4); PLATELET 322 x1000/uL (130-400); RED BLOOD CELL COUNT 3.13 mill/uL (4.2-5.4); RED CELL DISTRIBUTION WIDTH 21.4 % (11.6-14.6)
[2022-10-18] MEDS ORDERED: PREDNISONE 20MG TABLET PO ONE ×2 (04:00→10:00)
[2022-10-18 06:18] LABS: HEMOGLOBIN. 8.6 g/dL (12.0-16.0); MEAN CORPUSCULAR HEMOGLOBIN 26.6 pg (28.0-32.0); MEAN CORPUSCULAR VOLUME 77.2 fL (81.0-99.0); MEAN PLATELET VOLUME 9.4 fl (7.4-10.4); PLATELET 330 x1000/uL (130-400); RED BLOOD CELL COUNT 3.24 mill/uL (4.2-5.4); RED CELL DISTRIBUTION WIDTH 21.1 % (11.6-14.6)
[2022-10-18] MEDS: PIPERACILLIN/TAZOBACTAM 3.375 G in DEXTROSE 5% WATER 50 ML IV SCH ×3 (06:29→21:58)
[2022-10-18] MEDS: MORPHINE SULFATE 2 MG/ML CPJ (NOT FOR IM USE) IV PRN ×3 (09:42→20:40)
[2022-10-18] MEDS: SODIUM CHLORIDE 0.9% 1,000 ML IV SCH (09:51)
[2022-10-18] MEDS ORDERED: DIPHENHYDRAMINE 50MG/ML VIAL IV SCH (10:00)
[2022-10-18] MEDS ORDERED: IOHEXOL-350 100 ML BOTTLE ONE (12:44)
[2022-10-18 13:20] LABS: PLATELET ESTIMATE NORMAL
[2022-10-18 14:09] LABS: PLATELET ESTIMATE NORMAL
[2022-10-18] MEDS: DIPHENHYDRAMINE 50MG/ML VIAL IV PRN ×2 (15:01→20:39)
[2022-10-18] MEDS ORDERED: LOSARTAN POTASSIUM 50 MG TABLET PO SCH (15:45)
[2022-10-18] MEDS: VANCOMYCIN 1G PREMIX 200 ML IV SCH (15:55)
[2022-10-18] MEDS: HYDRALAZINE 20MG/ML VIAL IV SCH (17:19)
[2022-10-18] MEDS ORDERED: AMLODIPINE 5MG TABLET PO NR (19:15)
[2022-10-18] MEDS ORDERED: AMLODIPINE 5MG TABLET PO SCH (19:15)
[2022-10-18] MEDS ORDERED: HYDRALAZINE 20MG/ML VIAL IV PRN (19:30)
[2022-10-18] MEDS ORDERED: CLONIDINE 0.1MG TABLET PO PRN (19:30)
[2022-10-18] MEDS ORDERED: METOPROLOL TARTRATE 50MG TABLET PO SCH (21:00)
[2022-10-18] MEDS: METOPROLOL TARTRATE 50MG TABLET PO SCH (22:00)
[2022-10-19] VITALS (11 sets, daily range): BP systolic 137–178; BP diastolic 72–98
[2022-10-19] MEDS: SODIUM CHLORIDE 0.9% 1,000 ML IV SCH ×2 (02:24→18:35)
[2022-10-19] MEDS: DIPHENHYDRAMINE 50MG/ML VIAL IV PRN ×5 (02:36→23:52)
[2022-10-19] MEDS: HYDRALAZINE 20MG/ML VIAL IV SCH ×5 (02:49→23:51)
[2022-10-19] MEDS: METOPROLOL TARTRATE 50MG TABLET PO SCH (06:00)
[2022-10-19] MEDS: PIPERACILLIN/TAZOBACTAM 3.375 G in DEXTROSE 5% WATER 50 ML IV SCH ×2 (06:08→14:26)
[2022-10-19 06:38] LABS: CHLORIDE 112 mEq/L (98-107)
[2022-10-19 06:40] LABS: HEMATOCRIT. 23.7 % (36.0-48.0); HEMOGLOBIN. 8.4 g/dL (12.0-16.0); MEAN CORPUSCULAR HEMOGLOBIN 27.4 pg (28.0-32.0); MEAN CORPUSCULAR VOLUME 77.2 fL (81.0-99.0); MEAN PLATELET VOLUME 9.4 fl (7.4-10.4); PLATELET 369 x1000/uL (130-400); RED BLOOD CELL COUNT 3.06 mill/uL (4.2-5.4); RED CELL DISTRIBUTION WIDTH 21.2 % (11.6-14.6)
[2022-10-19] MEDS ORDERED: POTASSIUM CHLORIDE 20MEQ TABLET SR PO SCH ×2 (08:00→12:00)
[2022-10-19] MEDS ORDERED: SPIRONOLACTONE 25MG TABLET PO SCH (10:30)
[2022-10-19] MEDS: MORPHINE SULFATE 2 MG/ML CPJ (NOT FOR IM USE) IV PRN ×4 (10:48→23:52)
[2022-10-19] MEDS: LOSARTAN POTASSIUM 100 MG TABLET PO SCH (10:52)
[2022-10-19] MEDS: AMLODIPINE 5MG TABLET PO SCH (10:52)
[2022-10-19] MEDS ORDERED: AMLO5TAB88 PO (15:58)
[2022-10-19] MEDS ORDERED: SPIR25TA PO (15:58)
[2022-10-19] MEDS ORDERED: LOSA100T3 PO ×2 (15:58)
[2022-10-19] MEDS: VANCOMYCIN 1G PREMIX 200 ML IV SCH (18:02)
[2022-10-19 21:41] LABS: PLATELET ESTIMATE NORMAL
[2022-10-20] VITALS (7 sets, daily range): BP systolic 147–171; BP diastolic 62–96
[2022-10-20 04:07] LABS: PROTEIN C FUNCTIONAL 111 % (73-180)
[2022-10-20] MEDS: HYDRALAZINE 20MG/ML VIAL IV SCH ×3 (05:11→17:48)
[2022-10-20] MEDS: DIPHENHYDRAMINE 50MG/ML VIAL IV PRN ×4 (05:11→20:09)
[2022-10-20] MEDS: MORPHINE SULFATE 2 MG/ML CPJ (NOT FOR IM USE) IV PRN ×4 (05:12→20:11)
[2022-10-20 06:43] LABS: CHLORIDE 109 mEq/L (98-107)
[2022-10-20 07:23] LABS: BASOPHILS % 0.3 % (0.0-2.0); EOSINOPHILS % 2.7 % (0.0-5.0); HEMATOCRIT. 27.5 % (36.0-48.0); HEMOGLOBIN. 9.3 g/dL (12.0-16.0); LYMPHOCYTES % 14.7 % (20.0-50.0); MEAN CORPUSCULAR HEMOGLOBIN 26.9 pg (28.0-32.0); MEAN CORPUSCULAR VOLUME 79.8 fL (81.0-99.0); MONOCYTES % 9.6 % (2.0-8.0); NEUTROPHILS % 72.7 % (40.0-76.0); PLATELET 379 x1000/uL (130-400); RED BLOOD CELL COUNT 3.45 mill/uL (4.2-5.4); RED CELL DISTRIBUTION WIDTH 21.6 % (11.6-14.6)
[2022-10-20] MEDS: AMLODIPINE 5MG TABLET PO SCH (10:22)
[2022-10-20] MEDS: LOSARTAN POTASSIUM 100 MG TABLET PO SCH (10:23)
[2022-10-20] MEDS: POTASSIUM CHLORIDE 20MEQ TABLET SR PO SCH (10:23)
[2022-10-21] VITALS: BP 138/66
[2022-10-21] MEDS: HYDRALAZINE 20MG/ML VIAL IV SCH ×4 (01:12→17:46)
[2022-10-21] MEDS: DIPHENHYDRAMINE 50MG/ML VIAL IV PRN ×4 (03:28→22:51)
[2022-10-21] MEDS: MORPHINE SULFATE 2 MG/ML CPJ (NOT FOR IM USE) IV PRN (03:29)
[2022-10-21 04:00] VITALS: BP 122/65
[2022-10-21 06:34] LABS: BASOPHILS % 0.2 % (0.0-2.0); EOSINOPHILS % 2.1 % (0.0-5.0); HEMATOCRIT. 28.4 % (36.0-48.0); HEMOGLOBIN. 9.7 g/dL (12.0-16.0); MEAN CORPUSCULAR VOLUME 75.8 fL (81.0-99.0); MEAN PLATELET VOLUME 9.2 fl (7.4-10.4); MONOCYTES % 11.4 % (2.0-8.0); NEUTROPHILS % 72.3 % (40.0-76.0); PLATELET 427 x1000/uL (130-400); RED BLOOD CELL COUNT 3.75 mill/uL (4.2-5.4); RED CELL DISTRIBUTION WIDTH 22.3 % (11.6-14.6)
[2022-10-21 07:17] LABS: CHLORIDE 106 mEq/L (98-107)
[2022-10-21 08:00] VITALS: BP 150/98
[2022-10-21] MEDS ORDERED: NALOXONE HCL 0.4MG/ML VIAL IV PRN (09:15)
[2022-10-21] MEDS: LOSARTAN POTASSIUM 100 MG TABLET PO SCH (09:15)
[2022-10-21] MEDS: AMLODIPINE 5MG TABLET PO SCH (09:15)
[2022-10-21] MEDS: POTASSIUM CHLORIDE 20MEQ TABLET SR PO SCH (09:15)
[2022-10-21] MEDS ORDERED: HYDROCODONE/ACETAMINOPHEN 5/325MG TABLET PO PRN (09:15)
[2022-10-21] MEDS: SPIRONOLACTONE 25MG TABLET PO SCH (09:16)
[2022-10-21] MEDS: HYDROMORPHONE HCL 4MG TABLET PO PRN ×4 (11:10→22:50)
[2022-10-21 12:00] VITALS: BP 160/90
[2022-10-21 16:00] VITALS: BP 145/70
[2022-10-21 20:00] VITALS: BP 138/69
[2022-10-22] VITALS (7 sets, daily range): BP systolic 120–150; BP diastolic 68–87
[2022-10-22] MEDS: HYDROMORPHONE HCL 4MG TABLET PO PRN ×4 (03:42→20:50)
[2022-10-22 06:37] LABS: BASOPHILS % 0.2 % (0.0-2.0); HEMATOCRIT. 27.6 % (36.0-48.0); HEMOGLOBIN. 9.5 g/dL (12.0-16.0); LYMPHOCYTES % 11.9 % (20.0-50.0); MEAN CORPUSCULAR VOLUME 75.6 fL (81.0-99.0); MEAN PLATELET VOLUME 8.8 fl (7.4-10.4); MONOCYTES % 9.4 % (2.0-8.0); NEUTROPHILS % 76.5 % (40.0-76.0); PLATELET 407 x1000/uL (130-400); RED BLOOD CELL COUNT 3.65 mill/uL (4.2-5.4); RED CELL DISTRIBUTION WIDTH 22.2 % (11.6-14.6)
[2022-10-22] MEDS: POTASSIUM CHLORIDE 20MEQ TABLET SR PO SCH (09:08)
[2022-10-22] MEDS: LOSARTAN POTASSIUM 100 MG TABLET PO SCH (09:09)
[2022-10-22] MEDS: AMLODIPINE 5MG TABLET PO SCH (09:09)
[2022-10-22] MEDS: SPIRONOLACTONE 25MG TABLET PO SCH (09:09)
[2022-10-22] MEDS: DIPHENHYDRAMINE 50MG/ML VIAL IV PRN ×3 (09:10→20:51)
[2022-10-22] MEDS: HYDRALAZINE 20MG/ML VIAL IV SCH ×3 (12:36→18:27)
[2022-10-23] VITALS: BP 114/81
[2022-10-23] MEDS: HYDRALAZINE 20MG/ML VIAL IV SCH ×3 (01:02→13:14)
[2022-10-23] MEDS: OXYCODONE HCL 5MG TABLET PO PRN ×4 (01:07→16:24)
[2022-10-23] MEDS: HYDROMORPHONE HCL 4MG TABLET PO PRN ×3 (02:48→14:40)
[2022-10-23] MEDS: DIPHENHYDRAMINE 50MG/ML VIAL IV PRN ×3 (02:48→14:40)
[2022-10-23 04:00] VITALS: BP 129/69
[2022-10-23 07:46] LABS: HEMATOCRIT 26.2 % (36.0-48.0); HEMOGLOBIN 8.7 g/dL (12.0-16.0); MEAN CORPUSCULAR HEMOGLOBIN 25.5 pg (28.0-32.0); MEAN CORPUSCULAR VOLUME 76.8 fL (81.0-99.0); PLATELET 364 x1000/uL (130-400); RED BLOOD CELL COUNT 3.41 mill/uL (4.2-5.4); RED CELL DISTRIBUTION WIDTH 22.4 % (11.6-14.6)
[2022-10-23 08:00] VITALS: BP 130/80
[2022-10-23 08:19] LABS: PHOSPHORUS 3.7 mg/dL (2.5-4.9)
[2022-10-23] MEDS: AMLODIPINE 5MG TABLET PO SCH (08:43)
[2022-10-23] MEDS: SPIRONOLACTONE 25MG TABLET PO SCH (08:43)
[2022-10-23] MEDS: POTASSIUM CHLORIDE 20MEQ TABLET SR PO SCH (08:43)
[2022-10-23] MEDS: LOSARTAN POTASSIUM 100 MG TABLET PO SCH (08:44)
[2022-10-23 10:22] LABS: CREATINE KINASE 39 IU/L (26-192)
[2022-10-23 12:00] VITALS: BP 142/71
[2022-10-23 14:48] VITALS: BP 142/71
[2022-10-23] MEDS ORDERED: OXYC-105 MT (15:05)
[2022-10-23] MEDS ORDERED: NALO4SPR BOTHNSTRLS (15:05)
[2022-10-23 16:24] VITALS: BP 142/71
[2022-10-24] MEDS ORDERED: SPIRONOLACTONE 25MG TABLET PO SCH (09:00)
== END 2022-10-23 16:45 | disposition home or self-care (01) | DRG 871 ==
LOC: ER 18:53 → MICUSO 22:11 → EDBEDREQ 22:15 → EDBEDREQTM 22:15 → 7WST 10-16 10:23 → 5EST 10-16 16:57 → 7WST 10-21 21:20
PROVIDERS: ADMIT Family Medicine Adult Medicine; ATTEND Family Medicine Adult Medicine
PROC: 02HV33Z Insertion of Infusion Device into Superior Vena Cava, Percutaneous Approach (ICD-10-PCS; principal; 2022-10-16)
PROC: B548ZZA Ultrasonography of Superior Vena Cava, Guidance (ICD-10-PCS; 2022-10-16)
DX: A41.9 Sepsis, unspecified organism (principal); N17.0 Acute kidney failure with tubular necrosis; L02.211 Cutaneous abscess of abdominal wall; I13.0 Hypertensive heart and chronic kidney disease with heart failure and stage 1 through stage 4 chronic kidney disease, or unspecified chronic kidney disease; I50.30 Unspecified diastolic (congestive) heart failure; G62.81 Critical illness polyneuropathy; E87.1 Hypo-osmolality and hyponatremia; N18.9 Chronic kidney disease, unspecified; Z20.822 Contact with and (suspected) exposure to COVID-19; S30.1XXA Contusion of abdominal wall, initial encounter; E11.22 Type 2 diabetes mellitus with diabetic chronic kidney disease; G89.29 Other chronic pain; D50.9 Iron deficiency anemia, unspecified; Z79.82 Long term (current) use of aspirin; Z88.6 Allergy status to analgesic agent; Z91.041 Radiographic dye allergy status; Z88.8 Allergy status to other drugs, medicaments and biological substances; Z79.899 Other long term (current) drug therapy; Z87.01 Personal history of pneumonia (recurrent); Z82.3 Family history of stroke; Z82.49 Family history of ischemic heart disease and other diseases of the circulatory system; Z83.3 Family history of diabetes mellitus; X58.XXXA Exposure to other specified factors, initial encounter; Y93.89 Activity, other specified; Y92.89 Other specified places as the place of occurrence of the external cause; Y99.8 Other external cause status
CPT/HCPCS: 36415; 36573; 71045; 74174; 74176; 76770; 80048; 80053; 80202; 81003; 82550; 82570; 83605; 83735; 83880; 84100; 84145; 84300; 84484; 85025; 85027; 85303; 85306; 87426; 87804; 93005; 93970; 97161; 97166; 99291; A6261; C1725; C9803; J0360; J1200; J2270; J2405; J2543; J3370; J3490; J7030; J7060; J7512; Q0163; Q9967

== ENCOUNTER 2022-11-05 21:58 | Inpatient (IN) | payer MEDICARE, MEDICAID ==
[~2022-11-05] VITALS: Ht 167.6 cm; Wt 72.6 kg
[~2022-11-05 21:58] MED LIST changes: +AMLO5TAB88 PO; +ASPI-1497 PO; -CLON0.3T PO; -FURO-152 MT; +NALO4SPR BOTHNSTRLS; -OXYC-611 MT; +POTA-205 MT; +SPIR25TA PO
[2022-11-05] MEDS ORDERED: SODIUM CHLORIDE 0.9% 1,000 ML IV ONE (22:30)
[2022-11-05 23:18] LABS: CHLORIDE 98 mEq/L (98-107)
[2022-11-05 23:28] LABS: HEMATOCRIT. 26.1 % (36.0-48.0); HEMOGLOBIN. 8.4 g/dL (12.0-16.0); MEAN CORPUSCULAR HEMOGLOBIN 24.6 pg (28.0-32.0); MEAN CORPUSCULAR VOLUME 76.7 fL (81.0-99.0); MEAN PLATELET VOLUME 8.8 fl (7.4-10.4); PLATELET 323 x1000/uL (130-400); RED CELL DISTRIBUTION WIDTH 22.8 % (11.6-14.6)
[2022-11-06] MEDS ORDERED: MORPHINE SULFATE 4 MG/ML CPJ (NOT FOR IM USE) IV STA (00:01)
[2022-11-06] MEDS ORDERED: ONDANSETRON HCL 4MG/2ML INJ IV STA (00:01)
[2022-11-06] MEDS ORDERED: DIPHENHYDRAMINE 50MG/ML VIAL IV ONE (00:15)
[2022-11-06] MEDS ORDERED: PIPERACILLIN/TAZOBACTAM 3.375 G in DEXTROSE 5% WATER 50 ML IV SCH (03:00)
[2022-11-06] MEDS ORDERED: ACETAMINOPHEN 325MG TABLET PO PRN (03:00)
[2022-11-06] MEDS ORDERED: CLONIDINE 0.1MG TABLET PO PRN (03:00)
[2022-11-06] MEDS ORDERED: DOCUSATE SODIUM 100MG CAPSULE PO PRN (03:00)
[2022-11-06] MEDS ORDERED: IPRATROPIUM/ALBUTEROL 0.5-3(2.5)MG/3ML NEB HHN PRN (03:00)
[2022-11-06 03:15] LABS: PLATELET ESTIMATE NORMAL
[2022-11-06] MEDS ORDERED: SODIUM POLYSTYRENE SULFONATE 15 G/60 ML BOT PO NR (03:15)
[2022-11-06] MEDS ORDERED: PIPERACILLIN/TAZ 3.375G PREMIX 50 ML IV NR (03:45)
[2022-11-06] MEDS ORDERED: ALBUTEROL (0.083%) 2.5MG/3ML NEB HHN PRN (03:45)
[2022-11-06] MEDS ORDERED: IPRATROPIUM BROMIDE (0.02%) 0.5MG/2.5ML NEB HHN PRN (03:45)
[2022-11-06] MEDS ORDERED: VANCOMYCIN 1.25GM PMX (XELLIA) 250 ML IV NR ×2 (03:45→08:00)
[2022-11-06 03:46] LABS: CLARITY URINE CLEAR (CLEAR); COLOR URINE YELLOW (YELLOW); KETONES URINE NEGATIVE (NEGATIVE); LEUKOCYTE ESTERASE URINE NEGATIVE (NEGATIVE); NITRITE URINE NEGATIVE (NEGATIVE); OCCULT BLOOD URINE 2+ (NEGATIVE); PH URINE 5.5 (4.5-8.0); PROTEIN URINE TRACE (NEGATIVE); SPECIFIC GRAVITY URINE 1.014 (1.005-1.030); UROBILINOGEN URINE 0.2 E.U./dL (0.2-1.0)
[2022-11-06 04:02] LABS: INR 1.1
[2022-11-06] MEDS ORDERED: CEFTRIAXONE 1 G PREMIX 50 ML IV SCH (05:00)
[2022-11-06 05:04] LABS: TOTAL IRON BINDING CAPACITY 352 ug/dL (250-450)
[2022-11-06] MEDS: SODIUM CHLORIDE 0.9% 1,000 ML IV SCH ×4 (05:06→23:00)
[2022-11-06 05:09] LABS: FOLIC ACID (FOLATE) SERUM 5.6 ng/mL (>5.38)
[2022-11-06] MEDS: ONDANSETRON HCL 4MG/2ML INJ IV PRN (05:50)
[2022-11-06] MEDS: DIPHENHYDRAMINE 50MG/ML VIAL IV PRN (05:53)
[2022-11-06] MEDS: HYDROMORPHONE HCL/PF 2MG/ML CPJ IV PRN ×3 (05:59→19:02)
[2022-11-06 06:00] VITALS: BP 160/79
[2022-11-06 08:00] VITALS: BP 119/81
[2022-11-06] MEDS: CEFTRIAXONE 1,000 MG in DEXTROSE 5% WATER 50 ML IV SCH (08:37)
[2022-11-06] MEDS: FAMOTIDINE 20MG/2ML VIAL IV SCH (08:48)
[2022-11-06] MEDS ORDERED: PNEUMOCOCCAL VACCINE IM SCH (09:00)
[2022-11-06 12:00] VITALS: BP 131/76
[2022-11-06] MEDS ORDERED: PIPERACILLIN/TAZOBACTAM 3.375G in DEXT 5% WATER 50ML IV SCH (14:00)
[2022-11-06] MEDS ORDERED: NALOXONE HCL 0.4MG/ML VIAL IV PRN (17:15)
[2022-11-06 20:00] VITALS: BP 106/53
[2022-11-07] VITALS (7 sets, daily range): BP systolic 109–146; BP diastolic 61–80
[2022-11-07] MEDS: HYDROMORPHONE HCL/PF 2MG/ML CPJ IV PRN ×3 (00:09→10:49)
[2022-11-07] MEDS: DIPHENHYDRAMINE 50MG/ML VIAL IV PRN ×2 (02:14→12:22)
[2022-11-07 06:58] LABS: MEAN CORPUSCULAR HEMOGLOBIN 24.7 pg (28.0-32.0); MEAN CORPUSCULAR VOLUME 74.5 fL (81.0-99.0); MEAN PLATELET VOLUME 9.4 fl (7.4-10.4); PLATELET 286 x1000/uL (130-400); RED BLOOD CELL COUNT 2.69 mill/uL (4.2-5.4); RED CELL DISTRIBUTION WIDTH 22.2 % (11.6-14.6)
[2022-11-07 07:22] LABS: HEMOGLOBIN. 6.7 g/dL (12.0-16.0)
[2022-11-07 07:23] LABS: HEMATOCRIT. 20.1 % (36.0-48.0)
[2022-11-07] MEDS: FAMOTIDINE 20MG/2ML VIAL IV SCH (10:49)
[2022-11-07] MEDS: CEFTRIAXONE 1,000 MG in DEXTROSE 5% WATER 50 ML IV SCH (10:49)
[2022-11-07] MEDS ORDERED: VANCOMYCIN 1G PREMIX 200 ML IV SCH ×2 (11:00→16:45)
[2022-11-07 11:23] LABS: PLATELET ESTIMATE NORMAL
[2022-11-07] MEDS ORDERED: NALOXONE HCL 0.4MG/ML VIAL IV PRN (14:45)
[2022-11-07] MEDS: ACETAMINOPHEN 325MG TABLET PO PRN (14:52)
[2022-11-07] MEDS: AMLODIPINE 5MG TABLET PO SCH (16:53)
[2022-11-07] MEDS: METRONIDAZOLE 500 MG PREMIX 100 ML IV SCH ×2 (16:59→22:18)
[2022-11-07] MEDS: SODIUM CHLORIDE 0.9% 1,000 ML IV SCH (19:38)
[2022-11-07 20:54] LABS: HEMOGLOBIN 7.2 g/dL (12.0-16.0)
[2022-11-07] MEDS: HYDROCODONE/ACETAMINOPHEN 5/325MG TABLET PO PRN (22:18)
[2022-11-08] MEDS: HYDROCODONE/ACETAMINOPHEN 5/325MG TABLET PO PRN ×4 (03:06→22:05)
[2022-11-08 04:00] VITALS: BP 135/74
[2022-11-08] MEDS: METRONIDAZOLE 500 MG PREMIX 100 ML IV SCH ×3 (05:03→21:34)
[2022-11-08] MEDS: SODIUM CHLORIDE 0.9% 1,000 ML IV SCH ×3 (05:03→21:39)
[2022-11-08 07:15] LABS: HEMOGLOBIN 7.1 g/dL (12.0-16.0); MEAN CORPUSCULAR HEMOGLOBIN 27.8 pg (28.0-32.0); MEAN CORPUSCULAR VOLUME 80.5 fL (81.0-99.0); PLATELET 262 x1000/uL (130-400); RED BLOOD CELL COUNT 2.57 mill/uL (4.2-5.4); RED CELL DISTRIBUTION WIDTH 24.5 % (11.6-14.6)
[2022-11-08 07:31] LABS: CHLORIDE 107 mEq/L (98-107)
[2022-11-08 07:36] LABS: HEMATOCRIT 20.7 % (36.0-48.0)
[2022-11-08 08:00] VITALS: BP 138/78
[2022-11-08] MEDS ORDERED: POTASSIUM CHLORIDE 20MEQ TABLET SR PO NR (08:30)
[2022-11-08] MEDS ORDERED: POTASSIUM CHLORIDE INJ 40 MEQ in DEXT 5% WATER 500 ML IV ONE (10:00)
[2022-11-08] MEDS: AMLODIPINE 5MG TABLET PO SCH (10:05)
[2022-11-08] MEDS: CEFTRIAXONE 1,000 MG in DEXTROSE 5% WATER 50 ML IV SCH (10:05)
[2022-11-08] MEDS: FAMOTIDINE 20MG/2ML VIAL IV SCH (10:06)
[2022-11-08] MEDS: VANCOMYCIN 750MG PREMIX 150 ML IV SCH ×2 (10:30→21:31)
[2022-11-08 12:23] VITALS: BP 140/68
[2022-11-08 13:18] LABS: PHOSPHORUS 1.6 mg/dL (2.5-4.9)
[2022-11-08] MEDS: GUAIFENESIN 200MG/10ML SUGAR FREE UDC PO PRN ×2 (14:58→22:04)
[2022-11-08] MEDS: ACETAMINOPHEN 325MG TABLET PO PRN (14:59)
[2022-11-08 16:16] VITALS: BP 137/76
[2022-11-08] MEDS ORDERED: AZIT500T8 PO (16:51)
[2022-11-08] MEDS ORDERED: CEFI400C MT (16:53)
[2022-11-08 20:00] VITALS: BP 132/72
[2022-11-09] VITALS: BP 130/70
[2022-11-09 04:00] VITALS: BP 148/84
[2022-11-09] MEDS: GUAIFENESIN 200MG/10ML SUGAR FREE UDC PO PRN (05:25)
[2022-11-09] MEDS: HYDROCODONE/ACETAMINOPHEN 5/325MG TABLET PO PRN (05:25)
[2022-11-09] MEDS: METRONIDAZOLE 500 MG PREMIX 100 ML IV SCH ×2 (05:27→14:44)
[2022-11-09] MEDS: ONDANSETRON HCL 4MG/2ML INJ IV PRN ×2 (05:30→09:23)
[2022-11-09 08:00] VITALS: BP 125/67
[2022-11-09] MEDS: VANCOMYCIN 750MG PREMIX 150 ML IV SCH (09:00)
[2022-11-09] MEDS ORDERED: FAMOTIDINE 20MG TABLET PO SCH (09:00)
[2022-11-09] MEDS: AMLODIPINE 5MG TABLET PO SCH (09:23)
[2022-11-09] MEDS: CEFTRIAXONE 1,000 MG in DEXTROSE 5% WATER 50 ML IV SCH (09:24)
[2022-11-09] MEDS: ACETAMINOPHEN 325MG TABLET PO PRN (09:24)
[2022-11-09] MEDS: SODIUM CHLORIDE 0.9% 1,000 ML IV SCH (11:00)
[2022-11-09 12:00] VITALS: BP 141/78
[2022-11-09 14:19] VITALS: BP 125/69
== END 2022-11-09 16:43 | disposition home health service (06) | DRG 919 ==
LOC: ER 21:58 → 6EST 11-06 02:23 → EDBEDREQ 11-06 02:34 → EDBEDREQTM 11-06 02:34 → ER 11-06 05:21
PROVIDERS: ADMIT Internal Medicine; ATTEND Internal Medicine
PROC: 05H533Z Insertion of Infusion Device into Right Subclavian Vein, Percutaneous Approach (ICD-10-PCS; principal; 2022-11-07)
PROC: B546ZZA Ultrasonography of Right Subclavian Vein, Guidance (ICD-10-PCS; 2022-11-07)
PROC: 30233N1 Transfusion of Nonautologous Red Blood Cells into Peripheral Vein, Percutaneous Approach (ICD-10-PCS; 2022-11-07)
DX: T85.628A Displacement of other specified internal prosthetic devices, implants and grafts, initial encounter (principal); J18.9 Pneumonia, unspecified organism; E46 Unspecified protein-calorie malnutrition; E87.1 Hypo-osmolality and hyponatremia; N17.9 Acute kidney failure, unspecified; J44.0 Chronic obstructive pulmonary disease with (acute) lower respiratory infection; S30.1XXA Contusion of abdominal wall, initial encounter; I12.9 Hypertensive chronic kidney disease with stage 1 through stage 4 chronic kidney disease, or unspecified chronic kidney disease; G89.29 Other chronic pain; E78.5 Hyperlipidemia, unspecified; D50.9 Iron deficiency anemia, unspecified; E11.22 Type 2 diabetes mellitus with diabetic chronic kidney disease; E87.5 Hyperkalemia; N18.9 Chronic kidney disease, unspecified; L29.8 Other pruritus; Z88.6 Allergy status to analgesic agent; Z68.25 Body mass index [BMI] 25.0-25.9, adult; Z88.3 Allergy status to other anti-infective agents; Z79.4 Long term (current) use of insulin; Y84.8 Other medical procedures as the cause of abnormal reaction of the patient, or of later complication, without mention of misadventure at the time of the procedure; Y92.89 Other specified places as the place of occurrence of the external cause; X58.XXXA Exposure to other specified factors, initial encounter; Y93.89 Activity, other specified; Y99.8 Other external cause status
CPT/HCPCS: 36415; 36573; 71045; 74176; 76857; 80048; 80053; 80202; 81003; 82607; 82746; 83036; 83540; 83550; 83605; 83735; 83880; 84100; 84145; 85014; 85018; 85025; 85027; 85379; 86850; 86900; 86920; 90732; 93306; 99285; C1725; C1769; C1893; J0696; J1170; J1200; J2270; J2405; J3370; J3480; J3490; J7030; J7060; P9016

== ENCOUNTER 2023-04-26 20:22 | Emergency (ER) | payer OTHER, MEDICAID ==
[~2023-04-26] VITALS: Ht 165.1 cm; Wt 81.0 kg
[~2023-04-26 20:22] MED LIST changes: +AZIT500T8 PO; +CEFI400C MT
[2023-04-26 20:24] VITALS: BP 185/100; PULSE 89; RESP 18; TEMP 98.6; O2SAT 98
== END 2023-04-26 23:13 | disposition left against medical advice (07) ==
LOC: ER 20:22
DX: Z53.21 Procedure and treatment not carried out due to patient leaving prior to being seen by health care provider (principal)

== ENCOUNTER 2025-08-29 20:02 | Inpatient (IN) | payer BC, MEDICAID ==
[~2025-08-29] VITALS: Ht 165.1 cm; Wt 81.6 kg
[~2025-08-29 20:02] MED LIST changes: +AMLO10TA80 PO; -AMLO1TAB64 PO; -AMLO5TAB88 PO; +APIX5TAB PO; +ASPI-1406 PO; -ASPI-1497 PO; -ASPI-867 PO; -AZIT500T8 PO; -CEFI400C MT; +CLON-493 PO; +CLOP-31 PO; +DOXE10CA2 PO; +DULO60CA64 PO; +ERGO1250 PO; +GABA-1180 PO; -HYDR-4135 PO; +HYDR50TA40 MT; -NALO4SPR BOTHNSTRLS; -POTA-205 MT; +ROSU20CA PO; -SPIR25TA PO; +TIZA-191 PO
[2025-08-29 21:11] LABS: BASOPHILS % 0.3 % (0.0-2.0); EOSINOPHILS % 1.1 % (0.0-5.0); HEMATOCRIT. 30.7 % (36.0-48.0); HEMOGLOBIN. 9.9 g/dL (12.0-16.0); LYMPHOCYTES % 13.4 % (20.0-50.0); MEAN PLATELET VOLUME 9.5 fl (7.4-10.4); MONOCYTES % 8.2 % (2.0-8.0); NEUTROPHILS % 77.0 % (40.0-76.0); PLATELET 244 x1000/uL (130-400); RED BLOOD CELL COUNT 4.51 mill/uL (4.2-5.4); RED CELL DISTRIBUTION WIDTH 21.7 % (11.6-14.6)
[2025-08-29 21:14] LABS: ADD RBC MORPHOLOGY YES
[2025-08-29 21:24] LABS: INR 1.0
[2025-08-29 21:25] LABS: UREA NITROGEN BLOOD 44 mg/dL (9-23)
[2025-08-29 21:26] LABS: ASPARTATE AMINOTRANSFERASE 21 IU/L (<34); BILIRUBIN DIRECT < 0.1 mg/dL (<=3.0)
[2025-08-29 21:27] LABS: BILIRUBIN TOTAL 0.2 mg/dL (0.1-1.0); PROTEIN TOTAL 8.3 g/dL (6.0-8.3)
[2025-08-29 21:38] LABS: CREATININE 2.4 mg/dL (0.6-1.0)
[2025-08-29 23:36] LABS: PLATELET ESTIMATE NORMAL
[2025-08-29 23:59] LABS: TROPONIN I HIGH SENSITIVITY 82 ng/L (3.0-34)
[2025-08-30 00:01] LABS: TROPONIN I HIGH SENSITIVITY 76 ng/L (3.0-34)
[2025-08-30] MEDS: SODIUM CHLORIDE 0.9% 1,000 ML IV ONE (01:09)
[2025-08-30] MEDS: KETOROLAC 15MG/ML VIAL IV ONE (01:09)
[2025-08-30] MEDS: ONDANSETRON HCL 4MG/2ML INJ IV ONE (01:09)
[2025-08-30] MEDS: ASPIRIN 325MG TABLET PO ONE (01:15)
[2025-08-30] MEDS ORDERED: GUAIFENESIN 200MG/10ML SUGAR FREE UDC PO PRN (02:30)
[2025-08-30] MEDS ORDERED: ACETAMINOPHEN 325MG TABLET PO PRN ×2 (02:30)
[2025-08-30] MEDS ORDERED: DOCUSATE SODIUM 100MG CAPSULE PO PRN (02:30)
[2025-08-30] MEDS ORDERED: MAGNESIUM/ALUMINUM HYDROXIDE/SIMETHICONE 30ML UDC PO PRN (02:30)
[2025-08-30 02:40] VITALS: BP 168/84; PULSE 80; RESP 20; TEMP 35.9; O2SAT 98
[2025-08-30 03:00] VITALS: BP 168/84; PULSE 89; RESP 20; TEMP 35.9732
[2025-08-30] MEDS ORDERED: BUDESONIDE 0.5MG/2ML NEB HHN SCH (03:30)
[2025-08-30] MEDS: MORPHINE SULFATE 2 MG/ML INJ (NOT FOR IM USE) IV NR (03:43)
[2025-08-30] MEDS: DEXT 5%/0.9% NACL 1,000 ML IV SCH (04:48)
[2025-08-30] MEDS ORDERED: GABAPENTIN 300MG CAPSULE PO SCH (06:15)
[2025-08-30] MEDS ORDERED: HYDR2TAB4 MT (06:39)
[2025-08-30] MEDS: HYDRALAZINE HCL 50MG TABLET PO SCH (06:56)
[2025-08-30] MEDS: TIZANIDINE HCL 2MG TABLET PO SCH (06:56)
[2025-08-30 08:00] VITALS: BP 123/65; PULSE 64; RESP 18; TEMP 35.6; O2SAT 100
[2025-08-30] MEDS: BUDESONIDE 0.5MG/2ML NEB HHN SCH (09:17)
[2025-08-30 10:53] LABS: BG BASE EXCESS -0.4 mmol/L (-2.0-3.0); BG CARBOXYHEMOGLOBIN 0.7 % (0.5-1.5); BG DEOXYHEMOGLOBIN 1.6 % (0.0-5.0); BG FLOW(L/min) 2.00 L/min; BG FRACTION INSPIRED OXYGEN 28; BG HCO3 ACT 24.3 mmol/L (21.0-28.0); BG METHEMOGLOBIN 0.3 % (0.5-1.5); BG OXYGEN SATURATION 98.4 % (94.0-98.0); BG OXYHEMOGLOBIN 97.4 % (94.0-98.0); BG PCO2 40.2 mmHg (32.0-45.0); BG PH 7.400 (7.350-7.450); BG PO2 138.5 mmHg (83.0-108.0); BG SAMPLE SITE LEFT RADIAL; BG TOTAL HEMOGLOBIN 8.7 g/dL (12.0-16.0); BG VENT MODE NASAL CANNULA
[2025-08-30] MEDS: ONDANSETRON HCL 4MG/2ML INJ IV PRN (10:59)
[2025-08-30] MEDS: DULOXETINE HCL 60MG DR CAPSULE PO SCH (10:59)
[2025-08-30] MEDS: CLOPIDOGREL 75MG TABLET PO SCH (11:00)
[2025-08-30] MEDS: FUROSEMIDE 40MG/4ML VIAL IVP SCH (11:00)
[2025-08-30] MEDS: APIXABAN 5 MG TABLET PO SCH (11:00)
[2025-08-30] MEDS: GABAPENTIN 300MG CAPSULE PO SCH ×2 (11:01→21:00)
[2025-08-30] MEDS: AMLODIPINE 10MG TABLET PO SCH (11:01)
[2025-08-30] MEDS: CLONIDINE 0.1MG TABLET PO SCH (11:02)
[2025-08-30 12:00] VITALS: BP 175/94; PULSE 70; RESP 16; TEMP 36.3; O2SAT 97
[2025-08-30] MEDS ORDERED: NALOXONE HCL 0.4MG/ML VIAL IV PRN (13:30)
[2025-08-30 16:00] VITALS: BP 116/44; PULSE 65; RESP 16; TEMP 36.4; O2SAT 97
[2025-08-30] MEDS: HYDROCODONE/ACETAMINOPHEN 5/325MG TABLET PO PRN (18:48)
[2025-08-30 20:00] VITALS: BP 165/77; PULSE 76; RESP 19; TEMP 36.3; O2SAT 99
[2025-08-30] MEDS ORDERED: OXYC-662 MT (20:03)
[2025-08-30] MEDS ORDERED: DOXEPIN HCL 10MG CAPSULE PO SCH (21:00)
[2025-08-30] MEDS: ATORVASTATIN CALCIUM 40MG TABLET PO SCH (22:35)
[2025-08-30] MEDS ORDERED: MORPHINE SULFATE 2 MG/ML INJ (NOT FOR IM USE) IV PRN (22:45)
[2025-08-30] MEDS: MORPHINE SULFATE 2 MG/ML INJ (NOT FOR IM USE) IV SCH (22:49)
[2025-08-31] VITALS (9 sets, daily range): BP systolic 107–158; BP diastolic 51–75; PULSE 61–86; RESP 18–19; TEMP 35.9–36.4; O2SAT 97–100
[2025-08-31] MEDS: HYDROCODONE/ACETAMINOPHEN 7.5/325MG TABLET PO NR (05:25)
[2025-08-31] MEDS: IPRATROPIUM/ALBUTEROL 0.5-3(2.5)MG/3ML NEB HHN PRN (09:18)
[2025-08-31 17:12] LABS: BASOPHILS % 0.3 % (0.0-2.0); EOSINOPHILS % 2.0 % (0.0-5.0); HEMATOCRIT. 26.9 % (36.0-48.0); HEMOGLOBIN. 8.7 g/dL (12.0-16.0); LYMPHOCYTES % 18.6 % (20.0-50.0); MEAN PLATELET VOLUME 9.7 fl (7.4-10.4); MONOCYTES % 5.3 % (2.0-8.0); NEUTROPHILS % 73.8 % (40.0-76.0); PLATELET 227 x1000/uL (130-400); RED BLOOD CELL COUNT 3.99 mill/uL (4.2-5.4); RED CELL DISTRIBUTION WIDTH 21.1 % (11.6-14.6)
[2025-08-31 17:24] LABS: CREATININE 1.2 mg/dL (0.6-1.0)
[2025-08-31 17:25] LABS: ETHANOL BLOOD < 10 mg/dL (<10); UREA NITROGEN BLOOD 32 mg/dL (9-23)
[2025-08-31 17:26] LABS: LACTATE DEHYDROGENASE 187 IU/L (120-246)
[2025-08-31 17:28] LABS: VITAMIN B12 SERUM 852 pg/mL (211-911)
[2025-08-31 17:29] LABS: T4 FREE 1.39 ng/dL (0.89-1.76)
[2025-08-31 17:54] LABS: TROPONIN I HIGH SENSITIVITY 96 ng/L (3.0-34)
[2025-08-31] MEDS: DOXEPIN HCL 10MG CAPSULE PO SCH (21:39)
[2025-08-31] MEDS: AZITHROMYCIN 250 MG TABLET PO SCH (21:44)
[2025-08-31] MEDS: POTASSIUM CHLORIDE 20MEQ TABLET SR PO NR (21:45)
[2025-09-01] VITALS (7 sets, daily range): BP systolic 95–144; BP diastolic 42–72; PULSE 61–78; RESP 15–19; TEMP 36.1–37.2; O2SAT 97–100
[2025-09-02 09:10] LABS: FOLATE HEMATOCRIT 27.6 % (34.0-46.6)
== END 2025-09-01 17:50 | disposition home or self-care (01) | DRG 189 ==
LOC: ER 20:02 → EDBEDREQTM 08-30 01:15 → EDBEDREQSVC 08-30 01:15 → EDBEDREQ 08-30 01:15 → ENRESERV 08-30 01:30 → 6WST 08-30 02:30
PROVIDERS: ADMIT Internal Medicine; ATTEND Internal Medicine
DX: J96.20 Acute and chronic respiratory failure, unspecified whether with hypoxia or hypercapnia (principal); I21.A1 Myocardial infarction type 2; I13.0 Hypertensive heart and chronic kidney disease with heart failure and stage 1 through stage 4 chronic kidney disease, or unspecified chronic kidney disease; N17.9 Acute kidney failure, unspecified; J44.1 Chronic obstructive pulmonary disease with (acute) exacerbation; D50.9 Iron deficiency anemia, unspecified; E11.22 Type 2 diabetes mellitus with diabetic chronic kidney disease; N30.00 Acute cystitis without hematuria; Z79.01 Long term (current) use of anticoagulants; Z79.02 Long term (current) use of antithrombotics/antiplatelets; N18.9 Chronic kidney disease, unspecified; S91.302A Unspecified open wound, left foot, initial encounter; L97.529 Non-pressure chronic ulcer of other part of left foot with unspecified severity; R10.30 Lower abdominal pain, unspecified; Z79.82 Long term (current) use of aspirin; Z88.6 Allergy status to analgesic agent; Z91.041 Radiographic dye allergy status; Z88.8 Allergy status to other drugs, medicaments and biological substances; X58.XXXA Exposure to other specified factors, initial encounter; Y93.89 Activity, other specified; Y92.89 Other specified places as the place of occurrence of the external cause; Y99.8 Other external cause status
CPT/HCPCS: 36415; 36600; 71045; 74176; 80048; 80076; 80320; 82140; 82375; 82550; 82607; 82728; 82747; 82805; 83540; 83550; 83605; 83615; 83735; 83880; 84145; 84439; 84443; 84484; 85014; 85025; 85044; 85379; 93005; 94070; 94640; 94664; 97166; 99285; A4615; G0378; J1885; J1938; J2270; J2405; J7030; J7042; J7626; G0480